=== PATIENT | female | born 2000 | race Caucasian/White ===

== ENCOUNTER 2019-04-07 20:25 | Emergency (ER) | payer MEDICAID ==
[2019-04-07 20:47] VITALS: BP 134/74
--- NOTE | 2019-04-07 23:52 | RADIOLOGY REPORT (SQ) ---
EXAM DESCRIPTION: Left ankle RadLex: XR ANKLE 3 OR MORE VIEWS Views: 3 CLINICAL HISTORY: 18 years Female, bone pain after previous injury COMPARISON: None. FINDINGS: There is an ossific density distal to the lateral malleolus, suspicious for age-indeterminate avulsion injury. There is a donor site at the distal margin of the lateral malleolus. Please correlate with location of clinical symptoms. Overall alignment is anatomic. No additional fractures. IMPRESSION: 1. Age-indeterminate lateral malleolar avulsion fracture. Please correlate with location of clinical symptoms.
--- NOTE | 2019-04-08 00:09 | ER Document Report ---
ED General - General Chief Complaint: Ankle Pain Stated Complaint: ANKLE PAIN,RASH Primary Care Provider: ARELI RODRIGUES MD [Primary Care Provider] - Follow up as needed TRAVEL OUTSIDE OF THE [place] IN LAST 30 DAYS: No - HPI Notes: Patient presents with pain located left lateral malleolus. She states that over 2 months ago she had an incident where she twisted her foot and since that time she is been having pain. She also is concerned about a small abrasion on the anterior aspect of her abdomen right under her bra line. No recent nausea vomiting fever chest pain shortness of breath or abdominal pain. - Related Data Allergies/Adverse Reactions: No Known Allergies Allergy (Unverified 01/13/13 14:19) Past Medical History - Social History Smoking Status: Unknown if Ever Smoked Family History: Reviewed & Not Pertinent Patient has suicidal ideation: No Patient has homicidal ideation: No Psychiatric Medical History: Reports: Hx Attention Deficit Hyperactivity Disorder - Immunizations Immunizations up to date: Yes Hx Diphtheria, Pertussis, Tetanus Vaccination: Yes - unknown Review of Systems - Review of Systems Constitutional: No symptoms reported EENT: No symptoms reported Cardiovascular: No symptoms reported Respiratory: No symptoms reported Gastrointestinal: No symptoms reported Genitourinary: No symptoms reported Female Genitourinary: No symptoms reported Musculoskeletal: See HPI Skin: See HPI Hematologic/Lymphatic: No symptoms reported Neurological/Psychological: No symptoms reported Physical Exam - Vital signs Vitals: Temp Pulse Resp BP Pulse Ox 97.9 F 76 16 134/74 H 97 04/07/19 20:46 04/07/19 20:46 04/07/19 20:46 04/07/19 20:46 04/07/19 20:46 - General General appearance: Appears well, Alert - HEENT Head: Normocephalic, Atraumatic Eyes: Normal Pupils: PERRL - Respiratory Respiratory status: No respiratory distress Chest status: Nontender Breath sounds: Normal Chest palpation: Normal - Cardiovascular Rhythm: Regular Heart sounds: Normal auscultation Murmur: No - Extremities General lower extremity: Other - Patient has no tenderness or swelling over her left lateral malleolus no contusions or ecchymosis. Normal gait without any limp - Skin Skin Color: Other - Small abrasion right under patient's bra with no warmth or signs of infection Course - Re-evaluation Re-evalutation: 04/08/19 00:10 Age-indeterminate left lateral malleolus avulsion fracture. Per patient's history, this appears to have been over 2 months ago. She also has a small abrasion on her anterior aspect of her stomach and under her brassiere line. - Vital Signs Vital signs: Temp Pulse Resp BP Pulse Ox 97.9 F 76 16 134/74 H 97 04/07/19 20:46 04/07/19 20:46 04/07/19 20:46 04/07/19 20:46 04/07/19 20:46 Discharge - Discharge Clinical Impression: Closed avulsion fracture of lateral malleolus of left fibula Qualifiers: Encounter type: initial encounter Qualified Code(s): S82.62XA - Displaced fracture of lateral malleolus of left fibula, initial encounter for closed fracture Abdominal wall abrasion Qualifiers: Encounter type: initial encounter Qualified Code(s): S30.811A - Abrasion of abdominal wall, initial encounter Condition: Good Disposition: HOME, SELF-CARE Additional Instructions: Small avulsion fracture to your left lateral malleolus. Our conversation, it appears this occurred several months ago based on the history provided. In regards to the abrasion on your abdomen, please put a bandage over that area as it appears your bra is rubbing against abdomen causing this abrasion. Referrals: ARELI RODRIGUES MD [Primary Care Provider] - Follow up as needed
== END 2019-04-08 00:30 | disposition home or self-care (01) ==
LOC: ER 20:25
DX: S82.62XA Displaced fracture of lateral malleolus of left fibula, initial encounter for closed fracture (principal); X50.9XXA Other and unspecified overexertion or strenuous movements or postures, initial encounter; S30.811A Abrasion of abdominal wall, initial encounter; X58.XXXA Exposure to other specified factors, initial encounter
CPT/HCPCS: 99283

== ENCOUNTER 2019-08-13 16:47 | Emergency (ER) | payer MEDICAID ==
[2019-08-13 17:54] VITALS: BP 149/87
--- NOTE | 2019-08-13 18:10 | ER Document Report ---
ED Medical Screen (RME) - General Chief Complaint: Chest Pain Stated Complaint: CHEST PAIN Time Seen by Provider: 08/13/19 18:07 Primary Care Provider: VANCE ROLLINS PA [Primary Care Provider] - Follow up as needed Mode of Arrival: Ambulatory Information source: Patient Notes: 19-year-old female presented to ED for chest pain. She states she has had this chest pain for either 9 or 10 times in the last 6 weeks. She has not been evaluated by a provider. She is alert oriented respirations regular nonlabored at this time. Lung sounds are clear to auscultation. She states the pain is there right now and it is a 3/5. Last menstrual. On 07/22/2019 I have greeted and performed a rapid initial assessment of this patient. A comprehensive ED assessment and evaluation of the patient, analysis of test results and completion of medical decision making process will be conducted by an additional ED providers. TRAVEL OUTSIDE OF THE [place] IN LAST 30 DAYS: No - Related Data Allergies/Adverse Reactions: No Known Allergies Allergy (Verified 08/13/19 18:02) Past Medical History Psychiatric Medical History: Reports: Hx Attention Deficit Hyperactivity Disorder - Immunizations Immunizations up to date: Yes Hx Diphtheria, Pertussis, Tetanus Vaccination: Yes - unknown Physical Exam - Vital signs Vitals: Temp Pulse Resp BP Pulse Ox 98.1 F 80 16 149/87 H 99 08/13/19 17:53 08/13/19 17:53 08/13/19 17:53 08/13/19 17:53 08/13/19 17:53 Course - Vital Signs Vital signs: Temp Pulse Resp BP Pulse Ox 98.1 F 80 16 149/87 H 99 08/13/19 17:53 08/13/19 17:53 08/13/19 17:53 08/13/19 17:53 08/13/19 17:53 Doctor's Discharge - Discharge Referrals: VANCE ROLLINS PA [Primary Care Provider] - Follow up as needed
[2019-08-13] MEDS ORDERED: ASPIRIN 81 MG TABLET, CHEWABLE PO ONE (18:12)
--- NOTE | 2019-08-13 18:56 | RADIOLOGY REPORT (SQ) ---
EXAM DESCRIPTION: CHEST 2 VIEWS COMPLETED DATE/TIME: 08/13/2019 6:29 pm REASON FOR STUDY: Chest pain COMPARISON: None. EXAM PARAMETERS: NUMBER OF VIEWS: two views TECHNIQUE: Digital Frontal and Lateral radiographic views of the chest acquired. RADIATION DOSE: NA LIMITATIONS: none FINDINGS: LUNGS AND PLEURA: No opacities, masses or pneumothorax. No pleural effusion. MEDIASTINUM AND HILAR STRUCTURES: No masses or contour abnormalities. HEART AND VASCULAR STRUCTURES: Heart normal size. No evidence for failure. BONES: No acute findings. HARDWARE: None in the chest. OTHER: No other significant finding. IMPRESSION: NO ACUTE RADIOGRAPHIC FINDING IN THE CHEST. TECHNICAL DOCUMENTATION: JOB ID: [id number] [employer]- All Rights Reserved Reading location - IP/workstation name: [email or web address]
[2019-08-13 20:15] LABS: ABSOLUTE BASOPHILS # (AUTO) 0.3 10^3/uL (0.0-0.2); ABSOLUTE EOSINOPHILS # (AUTO) 0.1 10^3/uL (0.0-0.6); ABSOLUTE MONOCYTES (AUTO) 0.8 10^3/uL (0.1-1.4); ABSOLUTE NEUT (AUTO) 11.1 10^3/uL (1.7-8.2); EOSINOPHILS % (AUTO) 0.6 % (0-6); HEMATOCRIT 42.5 % (36.0-47.0); HEMOGLOBIN 14.6 g/dL (12.0-15.5); LYMPHOCYTES % (AUTO) 19.5 % (13-45); MEAN CORPUSCULAR HEMOGLOBIN 30.1 pg (27.0-33.4); MEAN CORPUSCULAR HGB CONC 34.5 g/dL (32.0-36.0); MEAN CORPUSCULAR VOLUME 87 fl (80-97); MONOCYTES % (AUTO) 5.3 % (3-13); PLATELET COUNT 270 10^3/uL (150-450); RED BLOOD COUNT 4.87 10^6/uL (3.72-5.28); RED CELL DISTRIBUTION WIDTH 12.9 % (11.5-14.0); SEGMENTED NEUTROPHILS % (AUTO) 72.6 % (42-78); TOTAL CELLS COUNTED % (AUTO) 100 %; WHITE BLOOD COUNT 15.3 10^3/uL (4.0-10.5)
[2019-08-13 20:35] LABS: ALKALINE PHOSPHATASE 100 U/L (38-126); ANION GAP 11 (5-19); ASPARTATE AMINO TRANSFERASE 24 U/L (14-36); BILIRUBIN,TOTAL 0.3 mg/dL (0.2-1.3); BLOOD UREA NITROGEN 17 mg/dL (7-20); CALCIUM 9.7 mg/dL (8.4-10.2); CARBON DIOXIDE 26 mmol/L (22-30); CHLORIDE 102 mmol/L (98-107); GLUCOSE 85 mg/dL (75-110); POTASSIUM 4.6 mmol/L (3.6-5.0); TOTAL PROTEIN 8.4 g/dL (6.3-8.2)
--- NOTE | 2019-08-13 21:53 | EKG REPORT ---
SEVERITY:- NORMAL ECG - SINUS RHYTHM : Confirmed by: Sho Nathan MD 13-Aug-2019 21:52:25
== END 2019-08-13 20:00 | disposition left against medical advice (07) ==
LOC: ER 16:47
DX: R07.9 Chest pain, unspecified (principal)
CPT/HCPCS: 36415; 71046; 80053; 83690; 84703; 85025; 93005; 93010; 99281

== ENCOUNTER 2019-12-18 20:49 | Emergency (ER) | payer MEDICAID ==
[2019-12-18 20:59] VITALS: BP 143/85
[2019-12-18] MEDS ORDERED: SULFAMETHOXAZOLE/TRIMETHOPRIM 800-160 MG TABLET PO ONE (22:15)
[2019-12-18] MEDS ORDERED: CEPHALEXIN 500 MG CAPSULE PO ONE (22:15)
[2019-12-18] MEDS ORDERED: HYDROCODONE/ACETAMINOPHEN 5-325 MG TABLET PO ONE (22:15)
--- NOTE | 2019-12-18 22:17 | ER Document Report ---
ED Medical Screen (RME) - General Chief Complaint: Abscess Stated Complaint: POSSIBLE ABSCESS Time Seen by Provider: 12/18/19 22:13 Primary Care Provider: VANCE ROLLINS PA [Primary Care Provider] - Follow up as needed Mode of Arrival: Ambulatory Information source: Patient Notes: Patient with abscess to left buttock for the past week. Patient denies any fever or history of diabetes. Area has started to spontaneously drain some blood. I have greeted and performed a rapid initial assessment of this patient. A comprehensive ED assessment and evaluation of the patient, analysis of test results and completion of the medical decision making process will be conducted by additional ED providers. TRAVEL OUTSIDE OF THE [place] IN LAST 30 DAYS: No - Related Data Allergies/Adverse Reactions: No Known Allergies Allergy (Verified 12/18/19 22:09) Past Medical History - Social History Frequency of alcohol use: None Drug Abuse: None Psychiatric Medical History: Reports: Hx Attention Deficit Hyperactivity Disorder - Immunizations Immunizations up to date: Yes Hx Diphtheria, Pertussis, Tetanus Vaccination: Yes - unknown Physical Exam - Vital signs Vitals: Temp Pulse Resp BP Pulse Ox 99.2 F 108 H 24 H 143/85 H 97 12/18/19 20:56 12/18/19 20:56 12/18/19 20:56 12/18/19 20:56 12/18/19 20:56 - Skin Skin Temperature: Warm Skin Moisture: Dry Skin Color: Erythema - Left buttock with erythema surrounding abscess Course - Vital Signs Vital signs: Temp Pulse Resp BP Pulse Ox 99.2 F 108 H 24 H 143/85 H 97 12/18/19 22:09 12/18/19 20:56 12/18/19 20:56 12/18/19 20:56 12/18/19 20:56 Doctor's Discharge - Discharge Referrals: VANCE ROLLINS PA [Primary Care Provider] - Follow up as needed
== END 2019-12-19 01:22 | disposition left against medical advice (07) ==
LOC: ER 20:49
DX: L02.31 Cutaneous abscess of buttock (principal)
CPT/HCPCS: 99281; J3490

== ENCOUNTER 2019-12-19 10:43 | Emergency (ER) | payer MEDICAID ==
--- NOTE | 2019-12-19 11:46 | ER Document Report ---
ED Medical Screen (RME) - General Chief Complaint: Abscess Stated Complaint: POSSIBLE INSECT BITE Time Seen by Provider: 12/19/19 11:44 Primary Care Provider: VANCE ROLLINS PA [Primary Care Provider] - Follow up as needed Mode of Arrival: Ambulatory Information source: Patient Notes: 19-year-old female presented to ED for large abscess to the buttocks. She states that she thought a spider bit her 3 days ago. She does have a very large abscess to her buttocks. It is red warm and has some drainage but needs to be further open. She states she woke up very dizzy tired tired and pale this morning because she is losing a lot of blood. It has very minimal draining there is no blood coming from it at this time. She denies any past medical or surgical history she denies any smoking drinking or using of illicit drugs. She is alert and oriented respirations regular nonlabored speaking in full sentences. I have greeted and performed a rapid initial assessment of this patient. A comprehensive ED assessment and evaluation of the patient, analysis of test results and completion of medical decision making process will be conducted by an additional ED providers. TRAVEL OUTSIDE OF THE [place] IN LAST 30 DAYS: No - Related Data Allergies/Adverse Reactions: No Known Allergies Allergy (Verified 12/19/19 11:45) Past Medical History Psychiatric Medical History: Reports: Hx Attention Deficit Hyperactivity Disorder - Immunizations Immunizations up to date: Yes Hx Diphtheria, Pertussis, Tetanus Vaccination: Yes - unknown Physical Exam - Vital signs Vitals: Temp Pulse Resp BP Pulse Ox 98.4 F 106 H 20 122/58 L 97 12/19/19 10:49 12/19/19 10:49 12/19/19 10:49 12/19/19 10:49 12/19/19 10:49 Course - Vital Signs Vital signs: Temp Pulse Resp BP Pulse Ox 98.4 F 106 H 20 122/58 L 97 12/19/19 10:49 12/19/19 10:49 12/19/19 10:49 12/19/19 10:49 12/19/19 10:49 Doctor's Discharge - Discharge Referrals: VANCE ROLLINS PA [Primary Care Provider] - Follow up as needed
[2019-12-19] MEDS ORDERED: LIDOCAINE 1% INJ-PF (10 MG/ML) 30 ML SDV INJ ONE (12:35)
--- NOTE | 2019-12-19 13:33 | ER Document Report ---
ED General - General Chief Complaint: Abscess Stated Complaint: POSSIBLE INSECT BITE Time Seen by Provider: 12/19/19 11:44 Primary Care Provider: VANCE ROLLINS PA [PHYSICIAN WASTE COLLECTOR] - Follow up as needed Mode of Arrival: Ambulatory TRAVEL OUTSIDE OF THE [place] IN LAST 30 DAYS: No - HPI Notes: Patient presents with pain to the left buttock. She states is been there for approximate 1 week. It is gradually getting worse. She states the pain is constant and severe. It is worse when she sits down and better if she does not put pressure on it. It does radiate into her left leg. She denies any fevers. No abdominal pain or vomiting. She denies any history of diabetes. - Related Data Allergies/Adverse Reactions: No Known Allergies Allergy (Verified 12/19/19 11:45) Past Medical History - General Information source: Patient - Social History Smoking Status: Never Smoker Chew tobacco use (# tins/day): No Frequency of alcohol use: None Drug Abuse: None Family History: Reviewed & Not Pertinent Patient has homicidal ideation: No Psychiatric Medical History: Reports: Hx Attention Deficit Hyperactivity Disorder - Immunizations Immunizations up to date: Yes Hx Diphtheria, Pertussis, Tetanus Vaccination: Yes - unknown Review of Systems - Review of Systems Constitutional: denies: Chills, Fever Cardiovascular: denies: Chest pain, Palpitations Respiratory: denies: Cough, Short of breath -: Yes All other systems reviewed and negative Physical Exam - Vital signs Vitals: Temp Pulse Resp BP Pulse Ox 98.4 F 106 H 20 122/58 L 97 12/19/19 10:49 12/19/19 10:49 12/19/19 10:49 12/19/19 10:49 12/19/19 10:49 Interpretation: Normal - General General appearance: Appears well, Alert - HEENT Head: Normocephalic, Atraumatic Eyes: Normal Pupils: PERRL - Respiratory Respiratory status: No respiratory distress Chest status: Nontender Breath sounds: Normal Chest palpation: Normal - Cardiovascular Rhythm: Tachycardia Heart sounds: Normal auscultation Murmur: No - Abdominal Inspection: Normal Distension: No distension Bowel sounds: Normal Tenderness: Nontender Organomegaly: No organomegaly - Rectal Notes: This patient's left buttock has a large area of induration and a violaceous surrounding area as well. The central area is erythematous and quite tender with some mild fluctuance. There is already pus draining from the center of this area. It is consistent with a large buttock abscess. Patient has no significant tenderness near the anal canal or anal opening. - Back Back: Normal, Nontender - Extremities General upper extremity: Normal inspection, Nontender, Normal color, Normal ROM, Normal temperature General lower extremity: Normal inspection, Nontender, Normal color, Normal ROM, Normal temperature, Normal weight bearing. No: Jeffrey's sign - Neurological Neuro grossly intact: Yes Cognition: Normal Orientation: AAOx4 Jim Coma Scale Eye Opening: Spontaneous [place] Coma Scale Verbal: Oriented [place] Coma Scale Motor: Obeys Commands [place] Coma Scale Total: 15 Speech: Normal Motor strength normal: LUE, RUE, LLE, RLE Sensory: Normal - Psychological Associated symptoms: Normal affect, Normal mood - Skin Skin Temperature: Warm Skin Moisture: Dry Skin Color: Other - Skin was normal except as above Course - Vital Signs Vital signs: Temp Pulse Resp BP Pulse Ox 98.4 F 106 H 20 122/58 L 97 12/19/19 11:46 12/19/19 10:49 12/19/19 10:49 12/19/19 10:49 12/19/19 10:49 Procedures - Incision and Drainage Left Buttock Time completed: 13:30 Type: Simple, Single Anesthetic type: 1% Lidocaine mL's of anesthetic: 5 Blade size: 11 I&D procedure: Iodoform packing placed, Sterile dressing applied Incision Method: Incision made by scalpel Amount/type of drainage: 10cc's pus/blood Discharge - Discharge Clinical Impression: Left buttock abscess Condition: Stable Disposition: HOME, SELF-CARE Instructions: Abscess ([facility]), Oral Narcotic Medication ([facility]), Trimethoprim-Sulfa ([facility]), Cephalexin ([facility]), Post Incision and Drainage Additional Instructions: Please return here in 48 hours for a recheck of your abscess and please return sooner if any problems with fever, increasing pain or other concerns. Prescriptions: Sulfamethoxazole/Trimethoprim [Bactrim Ds Tablet] 1 each PO BID 5 Days #10 tablet Cephalexin Monohydrate [Keflex 500 mg Capsule] 500 mg PO Q6H 5 Days capsule Hydrocodone/Acetaminophen [[place] 5-325 mg Tablet] 1 tab PO Q6 PRN 3 Days #12 tablet PRN Reason: Forms: Return to Work Referrals: VANCE ROLLINS PA [PHYSICIAN WASTE COLLECTOR] - Follow up as needed
[2019-12-19 13:44] VITALS: BP 123/83
== END 2019-12-19 13:47 | disposition home or self-care (01) ==
LOC: ER 10:43
PROC: 0H98XZZ Drainage of Buttock Skin, External Approach (ICD-10-PCS; principal; 2019-12-19)
DX: L02.31 Cutaneous abscess of buttock (principal); M79.605 Pain in left leg; R00.0 Tachycardia, unspecified
CPT/HCPCS: 99283; 10060; J3490

== ENCOUNTER → 2020-03-13 | Outpatient (CLI) | payer MEDICAID ==
[2020-03-13 11:33] VITALS: BP 124/71
--- NOTE | 2020-03-13 11:33 | ER RDC ASSESSMENT REPORT ---
Intake - In the Last 14 days Have you traveled outside [place]?: No Have you been in close contact with someone CONFIRMED: Yes Worked in Healthcare?: No - Symptoms Subjective Fever([place] feverish): No Chills: No Muscule Aches: No Runny Nose: No Sore Throat: No Cough (New or worsening chronic cough): No Shortness of breath: Yes Nausea or Vomiting: Yes Headache: No Abdominal Pain: No Diarrhea(3 or more loose stools in last 24 hours): No - Do you have any of the following Chronic lung disease: Asthma or emphysema or COPD: No Cystic Fibrosis: No Diabetes: No High Blood Pressure: No Cardiovascular Disease: No Chronic Kidney Disease: No Chronic Liver Disease: No Chronic blood disorder like Sickle Cell Disease: No Weak immune system due to disease or medication: No Neurologic condition that limits movement: Yes Neurological Condition Comment: ADHA Developmental delay - Moderate to Severe: No Recent (within past 2 weeks) or current : No Morbid Obesity (>100 pounds over ideal weight): Yes - Objective Temperature: 98.0 F Pulse Rate: 99 Respiratory Rate: 19 Blood Pressure: 124/71 O2 Sat by Pulse Oximetry: 97 Objective: Given above, testing performed: If Testing Performed: Test Specimen Type Sent to General - General Mode of Arrival: Ambulatory Information source: Patient Notes: Patient presents RTC for screening for the coronavirus. Patient has had shortness of breath with nausea that started today. Patient reports recent exposure to someone who did test positive. - Related Data Allergies/Adverse Reactions: No Known Allergies Allergy (Verified 12/19/19 11:45) Past Medical History - General Information source: Patient - Social History Smoking Status: Former Smoker Family History: Reviewed & Not Pertinent Psychiatric Medical History: Reports: Hx Attention Deficit Hyperactivity Disorder Surgical Hx: Negative Physical Exam - Notes Notes: The patient was evaluated during the global Covid 19 pandemic, and that diagnosis was suspected/considered upon their initial presentation. Their evaluation, treatment and testing was consistent with current guidelines for patients who present with complaints or symptoms that may be related to Covid 19. Full physical exam could not be performed due to covid 19 isolation protocols. Constitutional: Nontoxic appearance, no acute distress Eyes: Nonicteric, extraocular movements intact, sclera clear Cardiovascular: Heart rate and rhythm regular, no JVD Respiratory: Breath sounds clear bilaterally, nonlabored breathing, no use of accessory muscles, no tachypnea Gastrointestinal: Abdomen not distended Muculoskeletal: Moves all extremities well, normal gait Skin: Normal color Neuro: Awake alert oriented, normal speech Psych: Normal mood and affect Diagnostic Results Laboratory Results: Patient presents with upper respiratory symptoms worrisome for possible Covid 19. Patient does not have emergency worrying symptoms such as difficulty breathing, shortness of breath, chest pain, pressure, confusion or cyanosis. Patient appears suitable for discharge as they are not of an advanced age, do not have any chronic medical conditions such as diabetes, CAD, immune de ficiency, chronic lung disease or chronic kidney disease. Patient's vital signs are stable and patient is nontoxic in appearance. Good return precautions have been discussed with patient, patient verbalized understanding and is agreeable with discharge plan of care at this time. Patient Education/Counseling Counseling/Education: Patient was provided with discharge information including: As a person under investigation for Covid 19, the [place] department of Health and Human Services, division of public health advises you to adhere to the following guidance until your test results are reported to you. If your test result is positive, you will receive additional information from your provider and your local health department at that time. Remain at home until you are cleared by the health provider or public health authorities. Keep a log of visitors to your home, notify any visitors to your home of your isolation status. If you plan to move to a new address or leave the county, notify the local health department in your County. Call your doctor or seek care if you have an urgent medical need. Before seeking medical care, call ahead to get instructions from the provider before arriving at the medical office clinic or hospital. Notify them that you are being tested for the virus that causes Covid 19 so that arrangements can be made, as necessary, to prevent transmission to others in the healthcare setting. Next, notify the local health department in your county. If a medical emergency arises and you need to call 911, inform the first responders that you are being tested for the virus that causes Covid 19. Next, notify the local health department in your county. RDC Discharge - Discharge Clinical Impression: Encounter for screening laboratory testing for COVID-19 virus Condition: Stable Disposition: Home; Selfcare
== END ==
LOC: RDC 10:52
PROVIDERS: ATTEND Nurse Practitioner Family
DX: Z20.828 Contact with and (suspected) exposure to other viral communicable diseases (principal)
CPT/HCPCS: 87635; C9803; 99201; 99211